=== PATIENT | female | born 1965 | race American Indian/Alaskan Native ===

== ENCOUNTER 2016-09-15 10:17 | Outpatient (CLI) | payer OTHER ==
--- NOTE | 2016-09-15 16:05 | Mammography Report ---
BILATERAL DIGITAL SCREENING MAMMOGRAM with CAD: 09/15/16 10:17:00 CLINICAL: Routine screening. COMPARISON:09/13/15 FINDINGS: Breasts are heterogeneously dense, which may obscure small masses. A right asymmetry and architectural distortion requires additional imaging.No suspicious calcifications.The left breast is negative. IMPRESSION: Right asymmetry and architectural distortion requiring further workup. BI-RADS CATEGORY: 0 -- Additional Imaging Evaluation Required RECOMMENDATION: Recall for a right MLO spot compression view and right breast ultrasound if needed. ACR BI-RADS MAMMOGRAPHIC CODES: 0 = Needs additional imaging evaluation; 1 = Negative; 2 = Benign; 3 = Probably benign; 4 = Suspicious; 5 = Malignant; 6 = Known biopsy-proven malignancy COMMENT: 1. Dense breast tissue, i.e., adenosis, fibrocystic changes, etc., may obscure an underlying neoplasm. 2. Approximately 10% of cancers are not detected with mammography. 3. A negative mammography report should not delay biopsy if a clinically suspicious mass is present. COMMENT: Patient follow-up letters are generated via our [employer] application.
== END 2016-09-15 10:18 | disposition home or self-care (01) ==
LOC: SPVWC 10:17
PROVIDERS: ATTEND Obstetrics & Gynecology
DX: Z12.31 Encounter for screening mammogram for malignant neoplasm of breast (principal)
CPT/HCPCS: 77067; G0202

== ENCOUNTER 2016-09-29 08:16 | Outpatient (CLI) | payer OTHER ==
--- NOTE | 2016-09-29 09:04 | Mammography Report ---
RIGHT DIGITAL DIAGNOSTIC MAMMOGRAM : 09/29/16 08:16:00 CLINICAL: Recalled for asymmetry. COMPARISON:09/12/16 screening FINDINGS: ML and spot compression MLO views were performed. Satisfactory effacement on the spot view. IMPRESSION: Negative Mammogram. BI-RADS CATEGORY: 1 -- Negative RECOMMENDATION: Routine mammographic screening in one year. ACR BI-RADS MAMMOGRAPHIC CODES: 0 = Needs additional imaging evaluation; 1 = Negative; 2 = Benign; 3 = Probably benign; 4 = Suspicious; 5 = Malignant; 6 = Known biopsy-proven malignancy COMMENT: 1. Dense breast tissue, i.e., adenosis, fibrocystic changes, etc., may obscure an underlying neoplasm. 2. Approximately 10% of cancers are not detected with mammography. 3. A negative mammography report should not delay biopsy if a clinically suspicious mass is present. COMMENT: Patient follow-up letters are generated via our [employer] application.
== END 2016-09-29 08:17 | disposition home or self-care (01) ==
LOC: SPVWC 08:16
PROVIDERS: ATTEND Obstetrics & Gynecology
DX: R92.8 Other abnormal and inconclusive findings on diagnostic imaging of breast (principal)
CPT/HCPCS: G0206-RT

== ENCOUNTER 2016-11-13 11:05 | Outpatient (CLI) | payer OTHER ==
--- NOTE | 2016-11-13 11:57 | Ultrasound Report ---
LEFT BREAST ULTRASOUND: 11/13/16 11:05:00 CLINICAL: Left breast pain and left axillary pain. COMPARISON: 09/15/16 screening mammogram. FINDINGS: Ultrasound of the left breast(including all four quadrants and the retroareolar area) was performed and demonstrated normal fibroglandular and fatty structures. No mass, cyst or shadowing. No lymphadenopathy. 2 lymph nodes in the left axilla with central fat benign morphology measure 1.2 and 1.0 cm. IMPRESSION: Negative ultrasound of the left breast and axilla. I doubt that a mammogram would be helpful since she had a normal screening mammogram only 2 months ago. BI-RADS 1 - - Negative RECOMMENDATION: Clinical followup and routine yearly mammographic screening.
== END 2016-11-13 11:06 | disposition home or self-care (01) ==
LOC: SPVWC 11:05
PROVIDERS: ATTEND Obstetrics & Gynecology
DX: N64.4 Mastodynia (principal)